=== PATIENT | female | born 1975 | race Two or more races ===

== ENCOUNTER 2019-02-22 13:42 | Outpatient (CLI) | payer OTHER | END 2019-02-22 14:03 | disposition home or self-care (01) | LOC: NUCLEAR 13:42 | DX: C73 Malignant neoplasm of thyroid gland (principal) | CPT/HCPCS: 79005; A9517 ==

== ENCOUNTER → 2019-02-26 | Outpatient (CLI) | payer OTHER | END | disposition home or self-care (01) | LOC: NUCLEAR 14:50 | DX: C73 Malignant neoplasm of thyroid gland (principal) ==

== ENCOUNTER 2020-04-11 09:38 | Outpatient (CLI) | payer OTHER | END 2020-04-11 09:47 | disposition home or self-care (01) | LOC: NUCLEAR 09:38 | PROVIDERS: ATTEND Internal Medicine Sports Medicine | DX: C73 Malignant neoplasm of thyroid gland (principal) | CPT/HCPCS: 78020; 78018; A9528 ==